=== PATIENT | female | born 1955 | race Caucasian/White ===

== ENCOUNTER 2016-02-28 08:14 | Emergency (ER) | payer OTHER ==
[~2016-02-28] VITALS: Ht 157.5 cm; Wt 75.5 kg
[~2016-02-28 08:14] MED LIST: DICY20TA59 PO; DIPH1TAB25 PO; OMEP20CA16 PO; ZOF8 PO
[2016-02-28 08:32] VITALS: Ht 157.5 cm; Wt 75.5 kg
[2016-02-28] MEDS ORDERED: HYDROmorphONE 1 MG/ML SYG IV STA (09:32)
[2016-02-28] MEDS ORDERED: ONDANSETRON 4 MG INJ IV STA (09:32)
--- NOTE | 2016-02-28 10:18 | RADRPT ---
PROCEDURE: CT Abdomen and Pelvis without contrast. CLINICAL INDICATION: Right flank pain TECHNIQUE: CT scan of the abdomen and pelvis without contrast was performed on a multi-slice CT sc [facility] without intravenous contrast. Coronal and sagittal reformatted images were obtained from the axial source images. Images were reviewed on a high-resolution PACS workstation. One or more of the following does reduction techniques were used: Automated exposure control; adjustment of the mA an d/or kV according to patient size; use of the aorta of reconstruction technique. The total exam CTD I equals 17.97 mGy and the total exam DLP equals 974.95 mGy-cm. COMPARISON: None available. FINDINGS: The lung bases are clear. Heart size is normal, and there is no evidence of pericardial thickening or effusion. There are multiple rounded calcifications in the spleen and liver consistent with old granulomatous disease. The liver, spleen, and pancreas are otherwise normal given the limitations of a noncontras t CT examination. The gallbladder is normal. The adrenal glands are normal. The kidneys without renal calculus or hydronephrosis. Multiple pelv ic phleboliths somewhat limit evaluation of the distal ureters, however there are no definitive dist al ureteral calculi. The aorta is of normal caliber. A few atherosclerotic calcifications are present. There is no retro peritoneal lymph node enlargment. There is no evidence of large or small bowel obstruction. A normal appendix is identified. No jasmin e fluid or fluid collections are identified. No inflammatory changes are seen. The uterus is present. No enlarged pelvic sidewall lymph nodes are seen. The bladder is within norm al limits. No free fluid is identified. The inguinal regions are unremarkable. There are mild superior endplate compression fractures of T12 and L1 which appear chronic.. IMPRESSION: 1. No CT evidence of acute intra-abdominal or pelvic process. 2. Old granulomatous disease in the liver and spleen. 3. Atherosclerotic vascular disease. 4. Age indeterminate though chronic-appearing mild superior endplate compression fractures of T12 a nd L1. RPTAT: KK .Will Dominguez MD, MD Date Time Electronically viewed and signed by .Will Dominguez MD, MD on 02/28/2016 10:18 .B/
[2016-02-28 11:32] LABS: BASOPHIL # 0.1 10^3/ul (0.0-0.1); BASOPHILS % 0.8 % (0.0-2.0); EOSINOPHILS # 0.2 10^3/ul (0.0-0.5); EOSINOPHILS % 1.9 % (0.0-7.0); HEMATOCRIT 46.2 % (37.0-47.0); HEMOGLOBIN 15.5 g/dl (12.0-16.0); LYMPHOCYTES # 2.6 10^3/ul (0.8-2.9); LYMPHOCYTES % 27.9 % (15.0-51.0); MEAN CORPUSCULAR HEMOGLOBIN 30.5 pg (29.0-33.0); MEAN CORPUSCULAR HGB CONC 33.6 g/dl (32.0-37.0); MEAN CORPUSCULAR VOLUME 90.7 fl (82.0-101.0); MEAN PLATELET VOLUME 8.7 fl (7.4-10.4); MONOCYTES % 10.5 % (0.0-11.0); NEUTROPHIL # 5.5 10^3/ul (1.6-7.5); NEUTROPHILS % 58.9 % (39.0-77.0); PLATELET COUNT 235 10^3/UL (140-440); RED BLOOD COUNT 5.09 10^6/ul (4.20-5.40); RED CELL DISTRIBUTION WIDTH 12.5 % (11.5-14.5); UNCORRECTED WBC 9.3 10^3/ul (4.8-10.8); WHITE BLOOD COUNT 9.3 10^3/ul (4.8-10.8)
[2016-02-28 11:36] LABS: CONDITION 1
[2016-02-28 11:41] LABS: ALBUMIN 4.5 g/dl (3.3-4.9)
[2016-02-28 11:42] LABS: POTASSIUM 5.1 mmol/L (3.5-5.1)
[2016-02-28 11:44] LABS: ALBUMIN/GLOBULIN RATIO 1.02; BILIRUBIN,INDIRECT 0.5 mg/dl (0-1.1); BILIRUBIN,TOTAL 0.5 mg/dl (0.2-1.3); CREATININE 0.63 mg/dl (0.44-1.00); TOTAL PROTEIN 8.9 g/dl (6.1-8.1)
[2016-02-28 11:45] LABS: CALCIUM 9.2 mg/dl (8.4-10.2)
[2016-02-28 12:29] VITALS: BP 130/64; PULSE 78; RESP 18; TEMP 98.6
[2016-02-28] MEDS ORDERED: METH-70 PO (12:36)
[2016-02-28] MEDS ORDERED: HYDR-902 PO (12:36)
--- NOTE | 2016-02-28 12:39 | ERD ---
ER Documentation Chief Complaint Date/Time DATE: 02/28/16 TIME: 12:37 Chief Complaint r flank pain and some nausea HPI This is a pleasant 60-year-old female complains of 2 days of constant right flank pain she says she has right low back pain described as sharp and worse with movement better with rest. No dysuria no hematuria no pain after eating she says she has never had the pain before no nausea vomiting diarrhea no fever no abdominal pain. No radiation down the legs and numbness or weakness in the legs no loss of bowel or bladder ROS All systems reviewed and are negative except as per history of present illness. Medications Home Meds Active Scripts Hydrocodone/Acetaminophen (Enid 10-325 Tablet) 1 Each Tablet, 1 TAB PO Q6H Y for PAIN, #20 TAB Prov:MARTHA BAILEY DO 02/28/16 Methocarbamol* (Robaxin*) 750 Mg Tablet, 750 MG PO TID, #30 TAB Prov:MARTHA BAILEY DO 02/28/16 Dicyclomine Hcl* (Bentyl*) 20 Mg Tablet, 20 MG PO QID, #10 TAB Prov:SUZANNE LEUNG MD 03/17/15 Diphenoxylate Hcl-Atropine* (Lomotil*) 1 Tab Tab, 2 TAB PO QID Y for DIARRHEA, # 20 TAB Prov:SUZANNE LEUNG MD 03/17/15 Ondansetron Hcl* (Zofran* ODT) 8 mg -ODT Tab.disper, 8 MG PO Q6 Y for NAUSEA AND /OR VOMITING, #10 TAB Prov:SUZANNE LEUNG MD 03/17/15 Reported Medications Omeprazole* (Omeprazole*) 20 Mg Capsule.dr, 20 MG PO DAILY, #30 CAP 03/17/15 Allergies Allergies: Coded Allergies: aspirin (Verified Allergy, Intermediate, 03/17/15) PMhx/Soc History of Surgery: Yes (tubal ligation) Anesthesia Reaction: No Hx Neurological Disorder: No Hx Respiratory Disorders: No Hx Cardiac Disorders: No Hx Psychiatric Problems: No Hx Miscellaneous Medical Probl: No Hx Alcohol Use: No Hx Substance Use: No Hx Tobacco Use: Yes Smoking Status: Never smoker FmHx Family History: No coronary disease Physical Exam Vitals Vital Signs Date Time Temp Pulse Resp B/P Pulse Ox O2 Delivery O2 Flow Rate FiO2 02/28/16 08:32 98.6 89 18 133/67 98 Physical Exam Const: Well-developed, well-nourished Head: Atraumatic, normocephalic Eyes: Normal Conjunctiva, PERRLA, EOMI, normal sclera, no nystagmus ENT: Normal External Ears, Nose and Mouth, moist mucus membranes. Neck: Full range of motion. No meningismus, no lymphadenopathy. Resp: Clear to auscultation bilaterally, no wheezing, rhonchi, rales Cardio: Regular rate and rhythm, no murmurs, S1 S2 present Abd: Soft, non tender x 4, non distended. Normal bowel sounds, no guarding or rebound, no pulsitile abdominal masses or bruits Skin: No petechiae or rashes, no ecchymosis , no maculopapular rash Back: No midline tenderness there is some reproducible pain to palpation of the right lumbar region with some spasm. Pain is worse with twisting of the trunk negative straight leg test no saddle anesthesia Ext: No cyanosis, or edema, FROM x 4, normal inspection, neurovascularly intact x 4 Neur: Awake and alert, STR 5/5 x 4, sensation intact x 4, no focal findings, cerebellum intact Psych: Normal Mood and Affect Result Diagram: 02/28/16 1100 02/28/16 1100 Results 24 hrs Laboratory Tests Test 02/28/16 11:00 Alanine Aminotransferase (ALT/SGPT) 10IU/L Albumin 4.5g/dl Albumin/Globulin Ratio 1.02 Alkaline Phosphatase 120IU/L Anion Gap 19 Aspartate Amino Transf (AST/SGOT) 55IU/L Basophils # 0.110^3/ul Basophils % 0.8% Blood Urea Nitrogen 10mg/dl Calcium Level 9.2mg/dl Carbon Dioxide Level 20mmol/L Chloride Level 107mmol/L Creatinine 0.63mg/dl Direct Bilirubin 0.00mg/dl Eosinophils # 0.210^3/ul Eosinophils % 1.9% Globulin 4.40g/dl Glucose Level 71mg/dl Hematocrit 46.2% Hemoglobin 15.5g/dl Indirect Bilirubin 0.5mg/dl Lipase 107U/L Lymphocytes # 2.610^3/ul Lymphocytes % 27.9% Mean Corpuscular Hemoglobin 30.5pg Mean Corpuscular Hemoglobin Concent 33.6g/dl Mean Corpuscular Volume 90.7fl Mean Platelet Volume 8.7fl Monocytes # 1.010^3/ul Monocytes % 10.5% Neutrophils # 5.510^3/ul Neutrophils % 58.9% Nucleated Red Blood Cells # 0.010^3/ul Nucleated Red Blood Cells % 0.0/100WBC Platelet Count 92228^3/UL Potassium Level 5.1mmol/L Red Blood Count 5.0910^6/ul Red Cell Distribution Width 12.5% Sodium Level 141mmol/L Total Bilirubin 0.5mg/dl Total Protein 8.9g/dl White Blood Count 9.310^3/ul Current Medications Medications (Trade) Dose Ordered Sig/Lori Route PRN Reason Start Time Stop Time Status Last Admin Dose Admin Hydromorphone HCl (Dilaudid) 1 mg ONCE STAT IV 02/28/16 09:32 02/28/16 09:47 DC 02/28/16 11:40 Ondansetron HCl (Zofran Inj) 4 mg ONCE STAT IV 02/28/16 09:32 02/28/16 09:47 DC 02/28/16 11:40 Procedures/MDM PROCEDURE: CT Abdomen and Pelvis without contrast. CLINICAL INDICATION: Right flank pain TECHNIQUE: CT scan of the abdomen and pelvis without contrast was performed on a multi-slice CT scanner without intravenous contrast. Coronal and sagittal reformatted images were obtained from the axial source images. Images were reviewed on a high-resolution PACS workstation. One or more of the following does reduction techniques were used: Automated exposure control; adjustment of the mA and/or kV according to patient size; use of the aorta of reconstruction technique. The total exam CTDI equals 17.97 mGy and the total exam DLP equals 974.95 mGy-cm. COMPARISON: None available. FINDINGS: The lung bases are clear. Heart size is normal, and there is no evidence of pericardial thickening or effusion. There are multiple rounded calcifications in the spleen and liver consistent with old granulomatous disease. The liver, spleen, and pancreas are otherwise normal given the limitations of a noncontrast CT examination. The gallbladder is normal. The adrenal glands are normal. The kidneys without renal calculus or hydronephrosis. Multiple pelvic phleboliths somewhat limit evaluation of the distal ureters, however there are no definitive distal ureteral calculi. The aorta is of normal caliber. A few atherosclerotic calcifications are present. There is no retroperitoneal lymph node enlargment. There is no evidence of large or small bowel obstruction. A normal appendix is identified. No free fluid or fluid collections are identified. No inflammatory changes are seen. The uterus is present. No enlarged pelvic sidewall lymph nodes are seen. The bladder is within normal limits. No free fluid is identified. The inguinal regions are unremarkable. There are mild superior endplate compression fractures of T12 and L1 which appear chronic.. IMPRESSION: 1. No CT evidence of acute intra-abdominal or pelvic process. 2. Old granulomatous disease in the liver and spleen. 3. Atherosclerotic vascular disease. 4. Age indeterminate though chronic-appearing mild superior endplate compression fractures of T12 and L1. RPTAT: KK .Will Dominguez MD, Date Time Electronically viewed and signed by .Will Dominguez MD, on 2016 10:18 .B/ CC: MARTHA BAILEY DO Patient's blood work is relatively unremarkable. No evidence of stones in the gallbladder or renal system no bowel obstruction or appendicitis. Patient likely has musculoskeletal strain in the lumbar spine. We will provide her with some Robaxin and Enid for pain Departure Diagnosis: Primary Impression: Low back pain Chronicity: acute Back pain laterality: right Sciatica presence: without sciatica Qualified Code: M54.5 - Acute right-sided low back pain without sciatica Condition: Stable Patient Instructions: Self-Care for Low Back Pain, Back Pain (Acute Or Chronic) MARTHA BAILEY DO Feb 28, 2016 12:39
== END 2016-02-28 13:12 | disposition home or self-care (01) ==
LOC: E/R 08:14
DX: M54.5 Low back pain (principal); Z72.0 Tobacco use
CPT/HCPCS: 36415; 74176; 80053; 83690; 85025; 96374; 96375; J1170; J2405; Z7502

== ENCOUNTER 2016-08-05 09:13 | Emergency (ER) | payer OTHER ==
[~2016-08-05] VITALS: Ht 165.1 cm; Wt 85.0 kg
[~2016-08-05 09:13] MED LIST changes: +HYDR-902 PO; +METH-70 PO
[2016-08-05 09:19] VITALS: Ht 165.1 cm; Wt 85.0 kg
[2016-08-05] MEDS ORDERED: KETOROLAC 60 MG INJ IM STA (09:38)
--- NOTE | 2016-08-05 09:43 | ERD ---
ER Documentation Chief Complaint Date/Time DATE: 08/05/16 TIME: 09:39 Chief Complaint Complains of severe back pain HPI Patient is a 61-year-old female who presents with lower back pain. She has a history of chronic lower back pain secondary to bulging disks however it got aggravated yesterday when she bent down to pick something up and then when she bent back up she began having pain. She is ambulatory with a cane which is her baseline. She denies any fall or trauma. She takes Tylenol at home which only helps very minimally. She denies any fever, nausea, vomiting, dysuria, hematuria, or increased urinary frequency. She denies any bowel or bladder incontinence or saddle anesthesia. She denies any abdominal pain. ROS All systems reviewed and are negative except as per history of present illness. Medications Home Meds Active Scripts Hydrocodone/Acetaminophen (Lanse 10-325 Tablet) 1 Each Tablet, 1 TAB PO Q6H Y for PAIN, #20 TAB Prov:MARTHA BAILEY DO 02/28/16 Methocarbamol* (Robaxin*) 750 Mg Tablet, 750 MG PO TID, #30 TAB Prov:MARTHA BAILEY DO 02/28/16 Dicyclomine Hcl* (Bentyl*) 20 Mg Tablet, 20 MG PO QID, #10 TAB Prov:SUZANNE LEUNG MD 03/17/15 Diphenoxylate Hcl-Atropine* (Lomotil*) 1 Tab Tab, 2 TAB PO QID Y for DIARRHEA, # 20 TAB Prov:SUZANNE LEUNG MD 03/17/15 Ondansetron Hcl* (Zofran* ODT) 8 mg -ODT Tab.disper, 8 MG PO Q6 Y for NAUSEA AND /OR VOMITING, #10 TAB Prov:SUZANNE LEUNG MD 03/17/15 Reported Medications Omeprazole* (Omeprazole*) 20 Mg Capsule.dr, 20 MG PO DAILY, #30 CAP 03/17/15 Allergies Allergies: Coded Allergies: aspirin (Verified Allergy, Intermediate, 03/17/15) PMhx/Soc History of Surgery: Yes (tubal ligation) Anesthesia Reaction: No Hx Neurological Disorder: No Hx Respiratory Disorders: No Hx Cardiac Disorders: No Hx Psychiatric Problems: No Hx Miscellaneous Medical Probl: No Hx Alcohol Use: No Hx Substance Use: No Hx Tobacco Use: Yes Smoking Status: Never smoker FmHx Family History: No diabetes Physical Exam Vitals Vital Signs Date Time Temp Pulse Resp B/P Pulse Ox O2 Delivery O2 Flow Rate FiO2 08/05/16 09:19 98.0 84 20 117/79 98 Physical Exam General: well developed, well nourished, alert, nontoxic, no distress Head: normocephalic, atraumatic Neck: Supple, nontender, no lymphadenopathy, no midline tenderness Respiratory: Clear to auscaultation bilaterally, speaks in full sentences, no use of accesory muscles or labored breathing, no rales, ronchi, or wheezing Cardiovascular: RRR, No murmurs GI: soft, non tender, non distended, negative murphys sign, negative mcburneys point tenderness, no cva tenderness bilaterally, no rebound or guarding Back: no midline tenderness, no step offs or bony abnormalities, sensation to light touch in tact Extremities: moving all extremities normally, normal gait, no edema Procedures/MDM Patient presents with acute on chronic low back pain. She is neurovascularly intact. She has no bowel or bladder incontinence or saddle anesthesia. There is no trauma that he is worried he exudates. I doubt cauda equina syndrome, cord compression, epidural abscess, kidney stones, acute abdomen, or any other emergent cause of her symptoms. She was given Toradol and a Lanse here in the emergency room and discharged with Tylenol, Lanse, and soma. Recommended this patient follow up with her primary care doctor within 48 hours or return to the emergency room for any worsening of symptoms. However this time I do believe there is suitable for outpatient management. I answered all their questions and they agreed with the plan and were discharged home. Departure Diagnosis: Primary Impression: Back pain Condition: Stable ELMER DEWITT PA-C Aug 05, 2016 09:42
[2016-08-05] MEDS ORDERED: HYDR-906 PO (09:45)
[2016-08-05] MEDS ORDERED: ACET325T33 PO (09:45)
[2016-08-05] MEDS ORDERED: CARI350T PO (09:45)
[2016-08-05] MEDS ORDERED: HYDROCODONE/APAP (5/325) TAB PO ONE (10:00)
== END 2016-08-05 10:33 | disposition home or self-care (01) ==
LOC: FTE 09:13
DX: M54.5 Low back pain (principal)
CPT/HCPCS: 96372; J1885; Z7502; Z7610

== ENCOUNTER 2016-08-11 11:21 | Emergency (ER) | payer OTHER ==
[~2016-08-11] VITALS: Ht 157.5 cm; Wt 79.5 kg
[~2016-08-11 11:21] MED LIST changes: +ACET325T33 PO; +CARI350T PO; +HYDR-906 PO
[2016-08-11 11:24] VITALS: Ht 157.5 cm; Wt 79.5 kg
[2016-08-11] MEDS ORDERED: KETOROLAC 60 MG INJ IM STA (11:36)
[2016-08-11] MEDS ORDERED: TRAM50TA2 PO (11:41)
[2016-08-11] MEDS ORDERED: PRED20TA PO (11:41)
--- NOTE | 2016-08-11 11:45 | ERD ---
ER Documentation Chief Complaint Date/Time DATE: 08/11/16 TIME: 11:43 Chief Complaint BACK PAIN X 8 DAYS HPI 61-year-old female presents with low back pain for last 8 days. Radiates to her left buttock. She seen here last week and received a prescription of Linn , Flexeril and Tylenol. Patient is having pain despite prescription. Patient tried to get into see her primary doctor this week but was told she did not have an appointment. Patient had a CT scan approximately 6 months ago which shows endplate compression fractures of T12 and L1 patient denies any history of trauma. Patient denies any fever, urinary complaints, bowel bladder incontinence, weakness. ROS All systems reviewed and are negative except as per history of present illness. Medications Home Meds Active Scripts Prednisone* (Prednisone*) 20 Mg Tab, 40 MG PO DAILY for 4 Days, TAB Start August 12, 2016 Prov:BRETT WAKEFIELD MD 08/11/16 Tramadol HCl (Tramadol HCl) 50 Mg Tablet, 50 MG PO Q4 Y for PAIN, #20 TAB Prov:BRETT WAKEFIELD MD 08/11/16 Acetaminophen* (Tylenol*) 325 Mg Tablet, 1 TAB PO Q6 Y for PAIN AND OR ELEVATED TEMP, #30 TAB Prov:ELMER DEWITT PA-C 08/05/16 Carisoprodol* (Soma*) 350 Mg Tablet, 350 MG PO BID Y for MUSCLE SPASMS, #20 TAB Prov:ELMER DEWITT PA-C 08/05/16 Hydrocodone/Acetaminophen (Linn 5-325 Tablet) 1 Each Tablet, 1 TAB PO Q6H Y for PAIN, #20 TAB Prov:ELMER DEWITT PA-C 08/05/16 Hydrocodone/Acetaminophen (Linn 10-325 Tablet) 1 Each Tablet, 1 TAB PO Q6H Y for PAIN, #20 TAB Prov:MARTHA BAILEY DO 02/28/16 Methocarbamol* (Robaxin*) 750 Mg Tablet, 750 MG PO TID, #30 TAB Prov:OMER BAILEYSTMALIA Amezquita DO 02/28/16 Dicyclomine Hcl* (Bentyl*) 20 Mg Tablet, 20 MG PO QID, #10 TAB Prov:SUZANNE LEUNG MD 03/17/15 Diphenoxylate Hcl-Atropine* (Lomotil*) 1 Tab Tab, 2 TAB PO QID Y for DIARRHEA, # 20 TAB Prov:SUZANNE LEUNG MD 03/17/15 Ondansetron Hcl* (Zofran* ODT) 8 mg -ODT Tab.disper, 8 MG PO Q6 Y for NAUSEA AND /OR VOMITING, #10 TAB Prov:SUZANNE LEUNG MD 03/17/15 Reported Medications Omeprazole* (Omeprazole*) 20 Mg Capsule.dr, 20 MG PO DAILY, #30 CAP 03/17/15 Allergies Allergies: Coded Allergies: aspirin (Verified Allergy, Intermediate, 08/11/16) PMhx/Soc Medical and Surgical Hx: pt denies Medical Hx History of Surgery: Yes (tubal ligation) Anesthesia Reaction: No Hx Neurological Disorder: No Hx Respiratory Disorders: No Hx Cardiac Disorders: No Hx Psychiatric Problems: No Hx Miscellaneous Medical Probl: No Hx Alcohol Use: No Hx Substance Use: No Hx Tobacco Use: Yes Smoking Status: Current every day smoker Physical Exam Vitals Vital Signs Date Time Temp Pulse Resp B/P Pulse Ox O2 Delivery O2 Flow Rate FiO2 08/11/16 11:24 97.6 93 18 148/75 98 Physical Exam Const: [] Alert, [id number]. Head: Atraumatic Eyes: Normal Conjunctiva ENT: Normal External Ears, Nose and Mouth. Neck: Full range of motion..~ No meningismus. Resp: Clear to auscultation bilaterally Cardio: Regular rate and rhythm, no murmurs Abd: Soft, non tender, non distended. Normal bowel sounds Skin: No petechiae or rashes Back: No midline or flank tenderness. Tenderness in the left L4-5 paraspinous muscles left buttock. Patient has positive straight leg raise on the left. Ext: No cyanosis, or edema Neur: Awake and alert. Ambulatory without evidence of deficits or weakness. No appreciable focal neurologic deficits. Psych: Normal Mood and Affect Results 24 hrs Current Medications Medications (Trade) Dose Ordered Sig/Lori Route PRN Reason Start Time Stop Time Status Last Admin Dose Admin Ketorolac Tromethamine (Toradol) 60 mg ONCE STAT IM 08/11/16 11:36 08/11/16 11:38 DC Prednisone (Prednisone) 60 mg ONCE ONCE PO 08/11/16 12:00 08/11/16 12:01 Acetaminophen/ Hydrocodone Bitart (Linn (10/325)) 1 tab ONCE ONCE PO 08/11/16 12:00 08/11/16 12:01 Procedures/MDM Patient presents with signs and symptoms of sciatica without signs or symptoms to suggest fracture, dislocation, cauda equina syndrome, epidural abscess, neurologic deficit. Patient was given Toradol 60 mg IM. Patient has tolerated Toradol in the past despite a history of aspirin allergy. Patient additionally will be given prednisone 60 mg by mouth as well as Linn 10 mg by mouth here. Radiologic studies were deferred given findings on previous recent exam and no history of recent trauma. Patient will be discharged home with a short course of prednisone, tramadol and primary care follow-up. Patient was advised to return for fevers, weakness, bowel or bladder incontinence, new worsening symptoms with primary care as directed. The patient was stable with no new complaints during the ER course. Clinically, there is no current evidence to suggest meningitis, sepsis, acute abdomen, pneumonia, acute coronary syndrome, pulmonary embolism, or any other emergent condition appearing to require further evaluation or hospitalization. The patient should certainly return for any new or worsening symptoms per the aftercare instructions. They should otherwise follow-up with her primary care doctor for reevaluation this week. Departure Diagnosis: Primary Impression: Sciatica Laterality: left Qualified Code: M54.32 - Sciatica of left side Condition: Stable Patient Instructions: Back Exercises, Lumbar, Back Pain W/ Sciatica Additional Instructions: Cheque otro vez con trujillo doctor primario en el proximo reyes or regresa para mas o nueva simptomas. BRETT WAKEFIELD MD Aug 11, 2016 11:45
[2016-08-11 11:56] VITALS: BP 134/84; PULSE 76; RESP 19; TEMP 98.3
[2016-08-11] MEDS ORDERED: HYDROCODONE/APAP (10/325) TAB PO ONE (12:00)
[2016-08-11] MEDS ORDERED: predniSONE 20 MG TAB PO ONE (12:00)
== END 2016-08-11 11:57 | disposition home or self-care (01) ==
LOC: FTE 11:21
DX: M54.32 Sciatica, left side (principal); F17.210 Nicotine dependence, cigarettes, uncomplicated
CPT/HCPCS: J1885; J7512; Z7610; 96372